=== PATIENT | male | born 1940 | race Caucasian/White ===

== ENCOUNTER 2017-08-25 08:04 | Day surgery (SDC) ==
[2017-08-25] MEDS: TETRACAINE 0.5% UNIT-DOSE OP PRN ×2 (08:31→09:51)
[2017-08-25] MEDS: BETADINE OPTH PREP OP PRN ×2 (08:32→09:51)
[2017-08-25] MEDS: CYCLOGYL 2% OPTH OP PRN ×3 (08:33→08:43)
[2017-08-25 08:50] VITALS: TEMP 97.4
[2017-08-25] MEDS ORDERED: OMIDRIA 1-0.3% IN BSS BAG IR ONE (08:56)
[2017-08-25] MEDS ORDERED: MOXIFLOXACIN 150 MCG/0.1 ML-BSS INJ (SURGERY) IO ONE (08:56)
[2017-08-25] MEDS ORDERED: LIDOCAINE 1%/PHENYLEPHRINE 1.5% BSS (SURGERY) INTRAOCULA ONE (08:56)
[2017-08-25] MEDS ORDERED: NIRAVAM ODT (SURGERY) PO PRN (08:56)
[2017-08-25] MEDS ORDERED: ZOFRAN 4 MG/2 ML IVP ONE (08:56)
[2017-08-25] MEDS ORDERED: PRED FORTE 1% OPTH SOL OP ONE (08:56)
[2017-08-25] MEDS ORDERED: AK-DILATE 10% OPTH SOL OP PRN (08:56)
[2017-08-25] MEDS ORDERED: BRIMONIDINE TARTRATE 0.2% OPTH SOL OP PRN (08:56)
[2017-08-25] MEDS ORDERED: SUBLIMAZE ONE (09:50)
[2017-08-25] MEDS ORDERED: TORADOL ONE (09:50)
[2017-08-25] MEDS ORDERED: DIPRIVAN 20 ML VIAL IVP ONE (09:50)
[2017-08-25] MEDS ORDERED: VERSED ONE (09:50)
[2017-08-25 11:35] VITALS: BP 121/83
== END 2017-08-25 10:55 | disposition home or self-care (01) ==
LOC: SURG 08:04
PROVIDERS: ATTEND Ophthalmology
DX: H25.12 Age-related nuclear cataract, left eye (principal)

== ENCOUNTER 2017-09-08 08:00 | Day surgery (SDC) ==
[2017-09-08] MEDS: TETRACAINE 0.5% UNIT-DOSE OP PRN ×2 (08:35→09:26)
[2017-09-08] MEDS: BETADINE OPTH PREP OP PRN ×2 (08:36→09:26)
[2017-09-08] MEDS: CYCLOGYL 2% OPTH OP PRN ×3 (08:37→08:47)
[2017-09-08] MEDS ORDERED: BRIMONIDINE TARTRATE 0.2% OPTH SOL OP PRN ×2 (08:58→08:59)
[2017-09-08] MEDS ORDERED: AK-DILATE 10% OPTH SOL OP PRN ×2 (08:58→08:59)
[2017-09-08] MEDS ORDERED: DEX-MOXI-KETOR OPTH INJ 1/0.5/0.4 MG/ML IO ONE ×2 (08:58→08:59)
[2017-09-08] MEDS ORDERED: NIRAVAM ODT (SURGERY) PO PRN ×2 (08:58→08:59)
[2017-09-08] MEDS ORDERED: BSS WITH EPINEPHRINE OP ONE ×2 (08:58→08:59)
[2017-09-08] MEDS ORDERED: ZOFRAN 4 MG/2 ML IVP ONE ×2 (08:58→08:59)
[2017-09-08] MEDS ORDERED: TETRACAINE 0.5% UNIT-DOSE OP PRN (08:59)
[2017-09-08] MEDS ORDERED: BETADINE OPTH PREP OP PRN (08:59)
[2017-09-08] MEDS ORDERED: LIDOCAINE 1% 20 ML MDV ID STA (08:59)
[2017-09-08] MEDS ORDERED: CYCLOGYL 2% OPTH OP PRN (08:59)
[2017-09-08] MEDS ORDERED: VERSED ONE (09:35)
[2017-09-08] MEDS ORDERED: SUBLIMAZE ONE (09:35)
[2017-09-08] MEDS ORDERED: LIDOCAINE 1%/PHENYLEPHRINE 1.5% BSS (SURGERY) INTRAOCULA ONE (09:43)
[2017-09-08 13:18] VITALS: BP 144/68; TEMP 98.6
== END 2017-09-08 10:40 | disposition home or self-care (01) ==
LOC: SURG 08:00
PROVIDERS: ATTEND Ophthalmology
DX: H25.11 Age-related nuclear cataract, right eye (principal); H52.201 Unspecified astigmatism, right eye